=== PATIENT | male | born 1980 | race Caucasian/White ===

== ENCOUNTER → 2018-03-06 | Outpatient (CLI) | payer OTHER | LOC: CLAB 10:29 → CIMAGING 10:30 → EDSTATUS 10:30 | PROVIDERS: ATTEND Family Medicine | DX: M50.31 Other cervical disc degeneration, high cervical region (principal); M51.37 Other intervertebral disc degeneration, lumbosacral region | CPT/HCPCS: 72040-PO; 72100-PO ==